=== PATIENT | male | born 1975 | race Caucasian/White ===

== ENCOUNTER 2018-05-22 05:15 | Emergency (ER) | payer BC ==
[2018-05-22] MEDS ORDERED: Morphine 5 MG/ML SYRINGE ONE ×2 (05:30→06:12)
[2018-05-22] MEDS ORDERED: Ketorolac Tromethamine 30 MG/ML VIAL ONE (05:31)
[2018-05-22] MEDS ORDERED: Ondansetron HCl/PF 4 MG/2 ML Vial ONE (05:31)
[2018-05-22 05:35] LABS: #Basophils 0.2 thou/uL (0.0-0.2); #Eosinphils 0.2 thou/uL (0.0-0.7); #Lymphocytes 1.3 thou/uL (1.20-3.40); #Monocytes 0.6 thou/uL (0.11-0.59); #Neutrophils 12.9 thou/uL (1.40-6.50); %Lymphocytes 8.7 % (21.0-51.0); %Monocytes 4.1 % (0.0-10.0); %Neutrophils 85.2 % (42.0-75.0); Hemoglobin 18.3 g/dL (14.0-18.0); Mean Corpuscular Hemoglobin 29.2 pg (27.0-31.0); Mean Corpuscular Volume 83.5 fL (78.0-98.0); Mean Platelet Volume 7.4 fL (7.4-10.4); Platelet Count 244 thou/uL (130-400); RBC Distribution Width 11.5 % (11.5-14.5); Red Blood Cell (RBC) Count 6.25 mill/uL (4.70-6.10); White Blood Cell (WBC) Count 15.1 thou/uL (4.8-10.8)
[2018-05-22 05:49] LABS: ALT (SGPT) 19 U/L (8-55); AST (SGOT) 12 U/L (5-34); Albumin 4.6 g/dL (3.5-5.0); Alkaline Phosphatase 70 U/L (40-150); Anion Gap 15 mmol/L (10-20); BUN (Urea Nitrogen) 17 mg/dL (8.9-20.6); Bilirubin, Total 0.5 mg/dL (0.2-1.2); Calc. Creatinine Clearance 0 mL/min (70-130); Calcium 10.1 mg/dL (7.8-10.44); Carbon Dioxide 23 mmol/L (22-29); Chloride 105 mmol/L (98-107); Estimated GFR-MDRD 72; Globulin 2.5 g/dL (2.4-3.5); Glucose 132 mg/dL (70-105); Potassium 4.5 mmol/L (3.5-5.1); Protein, Total 7.1 g/dL (6.0-8.3); Sodium 138 mmol/L (136-145)
[2018-05-22 06:00] LABS: Bilirubin Negative (Negative); Blood, Urine Large (Negative); Clarity Cloudy (Clear); Glucose, Urine (Dipstick) Negative (Negative); Leukocyte Negative (Negative); Nitrite Negative (Negative); Protein, Urine (Dipstick) Negative (Neg-Trace); Specific Gravity, Urine 1.025 (1.005-1.030); Urobilinogen 0.2 mg/dL (0.2-1.0); pH, Urine 5.5 (5.0-9.0)
[2018-05-22 06:11] LABS: Bacteria/HPF Rare-Few HPF (None Seen); Hyaline Casts/LPF NONE SEEN LPF (0-3 Hyaline); RBC/HPF GREATER THAN 50-TNTC HPF (0-3); Squamous Epithelial 0-3 HPF (0-3); WBC/HPF 0-3 HPF (0-3)
--- NOTE | 2018-05-22 09:09 | CT ---
PRELIMINARY REPORT/[facility]/EMERGENTY AFTER-HOURS PROCEDURE CT Abdomen and Pelvis Without Intravenous Contrast CLINICAL HISTORY: 42 years old, male; Pain; Abdominal pain; Flank; Left; Patient HX: Lt flank pain. Pain is sharp in na ture, described as stabbing, described as similar to previous kidney stone episodes TECHNIQUE: Axial computed tomography images of the abdomen and pelvis without intravenous contrast. Coronal refo rmatted images were created and reviewed. COMPARISON: No relevant prior studies available. FINDINGS: Lower thorax: No acute findings. ABDOMEN: Liver: Normal. No mass. Gallbladder and bile ducts: Prior cholecystectomy. Pancreas: Normal. No ductal dilation. Spleen: Normal. No splenomegaly. Adrenals: Normal. No mass. Kidneys and ureters: 6 mm obstructing stone in the proximal left ureter causing mild obstructive urop athy. Stomach and bowel: Normal. No obstruction. No mucosal thickening. Appendix: Prior appendectomy. PELVIS: Bladder: Unremarkable as visualized. Reproductive: Unremarkable as visualized. ABDOMEN and PELVIS: Intraperitoneal space: Normal. No free air. No significant fluid collection. Bones/joints: No acute fracture. No dislocation. Soft tissues: Unremarkable. Vasculature: Normal. No abdominal aortic aneurysm. Lymph nodes: Normal. No enlarged lymph nodes. IMPRESSION: 6 mm obstructing stone in the proximal left ureter causing mild obstructive uropathy. Thank you for allowing us to participate in the care of your patient. Dictated and Authenticated by: Joe Almendarez MD 05/22/2018 6:47 AM Central Time ([place] & [place]) FINAL REPORT EMERGENT AFTER HOURS CT ABDOMEN AND PELVIS WITHOUT CONTRAST: FINDINGS/IMPRESSION: I agree with the findings and impression given in the preliminary report per [facility] physician. There is a proximal left ureteral calcification with mild left-sided hydronephrosis. POS: [facility]
== END 2018-05-22 07:02 | disposition home or self-care (01) ==
LOC: SCSER 05:15
DX: N20.2 Calculus of kidney with calculus of ureter (principal); I10 Essential (primary) hypertension; F17.210 Nicotine dependence, cigarettes, uncomplicated; Z79.899 Other long term (current) drug therapy
CPT/HCPCS: 74176; 80053; 81003; 81015; 85025; 87086; 96361; 96374; 96375; 96376; J2270; J1885; J2405